=== PATIENT | male | born 1970 | race Hispanic/Latino ===

== ENCOUNTER 2022-04-27 05:34 | Day surgery (SDC) | payer BC ==
[2022-04-22 11:58] LABS: EOSINOPHILS % (AUTO) 1.4 % (0.0-8.0); HEMATOCRIT 44.4 % (42-54); LYMPHOCYTES % (AUTO) 40.9 % (21.0-51.0); MEAN CORPUSCULAR HEMOGLOBIN 28.5 pg (27.0-33.0); MEAN CORPUSCULAR HGB CONC 34.2 g/dL (32.0-36.0); MEAN CORPUSCULAR VOLUME 83.3 fL (79-99); MONOCYTES % (AUTO) 5.7 % (3.0-13.0); NEUTROPHILS % (AUTO) 50.8 % (40.0-77.0); PLATELET COUNT (AUTO) 248 K/uL (130-400); RED BLOOD CELL COUNT(AUTO) 5.33 MIL/uL (4.50-6.20); RED CELL DISTRIBUTION WIDTH 12.5 % (11.0-15.5)
[2022-04-22 12:07] LABS: APPEARANCE,URINE CLEAR (CLEAR); BILIRUBIN,URINE NEGATIVE (NEGATIVE); COLOR,URINE LIGHT-YELLOW (YELLOW); GLUCOSE, URINE (UA) >=1000 mg/dL (NEGATIVE); KETONES,URINE 10 mg/dL (NEGATIVE); LEUKOCYTE ESTERASE ,URINE NEGATIVE Leu/uL (NEGATIVE); NITRATE,URINE NEGATIVE (NEGATIVE); OCCULT BLOOD,URINE NEGATIVE (NEGATIVE); PH,URINE 7.5 (5.0-8.0); PROTEIN,URINE 10 mg/dL (NEGATIVE); UROBILINOGEN,URINE 0.2 mg/dL (0.2-1.0)
[2022-04-22 12:12] LABS: CREATININE 1.2 mg/dL (0.5-1.5); POTASSIUM 4.3 mmol/L (3.5-5.1); SQUAMOUS EPITHELIAL CELL,UR RARE /HPF (0-2)
[2022-04-22 12:13] LABS: INR 0.94 (0.85-1.15); PROTHROMBIN TIME 10.3 SEC (9.6-11.6)
[2022-04-22 12:26] LABS: B-TYPE NATRIURETIC PEPTIDE 10 pg/mL (0-100)
[2022-04-26 12:35] VITALS: BP_SYST 126
[~2022-04-27] VITALS: Ht 170.2 cm; Wt 106.8 kg
[2022-04-27] VITALS (16 sets, daily range): BP systolic 95–144; BP diastolic 60–85
[~2022-04-27 05:34] MED LIST: ASPI-1005 PO; GLYB-171 PO; ICOS1CAP PO; METO50CA PO; OLME40TA18 PO; ROSU40TA21 PO
[2022-04-27] MEDS ORDERED: 0.9%NACL 1000ML 1,000 ML IV ONE (06:21)
[2022-04-27] MEDS ORDERED: IOHEXOL 350 MG/ML 100ML INFUS..BTL IV ONE (07:23)
[2022-04-27] MEDS ORDERED: VERAPAMIL HCL 2.5 MG/ML VIAL ONE (07:23)
[2022-04-27] MEDS ORDERED: HEPARIN 10,000 UNIT/10ML (1,000 UNIT/ML) VIAL ONE (07:23)
[2022-04-27] MEDS ORDERED: MEPERIDINE-PF 25 MG/ML SYG ONE (07:23)
[2022-04-27] MEDS ORDERED: NITROGLYCERIN 50MG VIAL ONE (07:23)
[2022-04-27] MEDS ORDERED: LIDOCAINE HCL 400MG/20ML VIAL ONE (07:24)
[2022-04-27] MEDS ORDERED: MIDAZOLAM HCL 1 MG/ML 2ML VIAL ONE ×2 (07:24→07:56)
[2022-04-27] MEDS ORDERED: FENTANYL CITRATE PF 50 MCG/1 ML 2ML VIAL ONE (07:25)
[2022-04-27] MEDS ORDERED: DiphenhydrAMINE HCL 50 MG/ML VIAL ONE (07:44)
[2022-04-27] MEDS ORDERED: 0.9%NACL 1000ML 1,000 ML IV SCH (08:00)
[2022-04-27] MEDS ORDERED: IOHEXOL-350 50ML VIAL IV ONE (08:07)
[2022-04-27] MEDS ORDERED: DEXTROSE 50%-WATER 50 ML DISP.SYRIN IV PRN (08:30)
[2022-04-27] MEDS ORDERED: GLUCAGON 1MG KIT 1 MG ML IM PRN (08:30)
[2022-04-27] MEDS ORDERED: INSULIN HUMULIN R 100 UNIT/ML 3ML ONE (09:33)
== END 2022-04-27 12:10 | disposition home or self-care (01) ==
LOC: DAH 05:34
PROVIDERS: ATTEND Student in an Organized Health Care Education/Training Program
DX: I25.118 Atherosclerotic heart disease of native coronary artery with other forms of angina pectoris (principal); I10 Essential (primary) hypertension; E11.9 Type 2 diabetes mellitus without complications; E78.2 Mixed hyperlipidemia; Z79.82 Long term (current) use of aspirin; Z79.01 Long term (current) use of anticoagulants; Z79.899 Other long term (current) drug therapy
CPT/HCPCS: 80048; 83880; 85025; 85610; 85730; 81001; 36415; 71045; 93005; 93458; 82948 ×2; J1815; C1769; C1894; Q9965; J1200; J3010; J3490 ×3; J7030; J1644 ×2; J2250 ×2; Q9967; A4215; A4222; A6260; A4221; A4663; A4216; A6206; A4606; A4223 ×3; 99156; 99157; J2175

== ENCOUNTER 2024-11-19 14:04 | Emergency (ER) | payer BC ==
[~2024-11-19] VITALS: Ht 170.2 cm; Wt 102.1 kg
[~2024-11-19 14:04] MED LIST changes: -ROSU40TA21 PO; +ROSU40TA88 PO
[2024-11-19 14:05] VITALS: BP 132/74; PULSE 91; RESP 19; TEMP 98.6
[2024-11-19 14:31] LABS: IMMATURE GRANULOCYTE ABSOLUTE 0.02 K/uL (0-1); NUCLEATED RED BLOOD CELLS 0.0 % (0.0-0.19); PLATELET COUNT (AUTO) 219 K/uL (130-400); RED BLOOD CELL COUNT(AUTO) 5.08 MIL/uL (4.50-6.20); RED CELL DISTRIBUTION WIDTH 12.7 % (11.0-15.5); WHITE BLOOD COUNT (AUTO) 8.4 K/uL (4.8-10.8)
--- NOTE | 2024-11-19 14:34 | EKG ---
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
[2024-11-19 14:40] LABS: CREATININE 1.0 mg/dL (0.5-1.3); GLOMERULAR FILTR. RATE CALC 91.0 mL/min (>90); GLUCOSE,RANDOM 175.0 mg/dL (70-105); SODIUM SERUM 138.0 mmol/L (136-145); UREA NITROGEN, BLOOD 12.0 mg/dL (7-18)
[2024-11-19 14:45] LABS: ASPARTATE AMINOTRANSFERASE 15.0 U/L (10-37); TOTAL PROTEIN, SERUM 7.1 g/dL (6.0-8.3)
--- NOTE | 2024-11-19 15:45 | NUR ---
PATIENT VOICED DESIRE TO LEAVE AT THIS TIME DUE TO SYMPTOMS RESOLVING, PATIENT INFORMED THAT LEAVING IS CONSIDERED LEAVING AGAINST MEDICAL ADVICE OF THE PHYSICIAN, AND THE RISK INVOLVED INCLUDE WORSENING OF CONDITION OR . PATIENT VOICED UNDERSTANDING AT THIS TIME AND REINFORCED EDUCATION TO RETURN TO ED IF SYMPTOMS WORSEN. PATIENT SIGNED AMA FORM AT THIS TIME AND AMBULATED OUT OF THE ED./DAKOTA
--- NOTE | 2024-12-26 15:23 | ERN ---
ED Note History of Present Illness Stated Complaint: CHEST PAIN Chief Complaint: Chest Pain Time Seen by MD: 14:08 Dictation: Patient was seen November 19, 2024 54-year-old male with chest pain on and off for the past few days patient reported sharp discomfort. No shortness a breath Allergies: Coded Allergies: No Known Allergies (Verified Allergy, Unknown, 04/22/22) Home Meds Reported Medications Glyburide/Metformin HCl (Glyburide-Metformin 2.5-500 mg) 1 Each Tablet, 4 EACH PO AM, TAB 04/26/22 Aspirin (ASPIRIN 81MG CHEW TAB) 81 Mg Tab.chew, 81 MG PO AM, TAB.CHEW 04/26/22 Rosuvastatin Calcium (Rosuvastatin Calcium) 40 Mg Tablet, 40 MG PO AM, TAB 04/26/22 Olmesartan Medoxomil (Olmesartan Medoxomil) 40 Mg Tablet, 40 MG PO AM, TAB 04/26/22 Icosapent Ethyl (Vascepa) 1 Gm Capsule, 4 GM PO AM, CAP 04/26/22 Metoprolol Succinate (Kapspargo Sprinkle) 50 Mg Cap.spr.24, 50 MG PO AM, CAP 04/26/22 Past Medical History Past Medical History: CAD, Diabetes-Type II, High Cholesterol, Hypertension Surgical History: Tonsillectomy Review of System Dictation Constitutional: Negative for fever,chills, and weight loss Eyes: Negative for injury, pain,redness, and discharge ENT: Negative for injury,pain or swelling Cardiovascular: Per HPI Respiratory: Negative for shortness of breath, cough, and wheezing, Abdomen/GI: Negative for abdominal pain, nausea, vomiting, diarrhea, and constipation Back: Negative for injury and pain : Negative for injury, bleeding and discharge MS/Extremity: Negative for injury and deformity Skin: Negative for rash, and discoloration Neuro: Negative for headache, weakness, numbness, tingling, and seizure Psych: Negative for suicide ideation, homicidal ideation, and hallucinations Initial Vital Sign VS Vital Signs Date Time Temp Pulse Resp B/P (MAP) Pulse Ox O2 Delivery O2 Flow Rate FiO2 11/19/24 14:05 98.6 91 19 132/74 98 Room Air 0 Physical Exam Dictation General: awake, alert, NAD Head/Face: Normocephalic, atraumatic Eyes: PERRL, EOMI, vision at baseline ENT: oral cavity clear, TMs clear, no signs of infection Neck: Trachea midline, supple, no nuchal rigidity Cardiovascular: RRR, normal S1/S2, No MRGs, no JVD Respiratory: CTAB, no respiratory distress, No rales or wheezes Abdomen: Soft, non-tender, non-distended, normal bowel sounds, no guarding or rebound. Skin: Warm, dry, normal turgor, no rash MS/Extremity: Pulses equal, no cyanosis, neurovascular intact, FROM Neuro: COAx4, GCS 15, strength 5/5, CN 2-12 intact, normal cerebellar exam, normal gait, Psych: Normal behavior, mood, and affect normal Results (Laboratory/Radiology) Labs Reviewed?: Yes ED Course ED Course 54-year-old male with chest pain initial workup sent out however patient left ag ainst medical advice, unable to give disposition. Medical Decision Making MDM patient left AMA DX & DISP Disposition: AMA Departure Impression: Primary Impression: Chest pain Condition: Stable Referrals: SELF,REFERRAL (PCP) NERI PALACIO MD Dec 26, 2024 15:23
== END 2024-11-19 15:49 | disposition left against medical advice (07) ==
LOC: EDH 14:04
DX: R07.9 Chest pain, unspecified (principal); E11.9 Type 2 diabetes mellitus without complications; E78.00 Pure hypercholesterolemia, unspecified; I10 Essential (primary) hypertension; I25.10 Atherosclerotic heart disease of native coronary artery without angina pectoris; Z79.84 Long term (current) use of oral hypoglycemic drugs; Z79.82 Long term (current) use of aspirin; Z90.89 Acquired absence of other organs; Z53.29 Procedure and treatment not carried out because of patient's decision for other reasons
CPT/HCPCS: 36415; 80048; 80076; 83880; 84484; 85025; 93005; 99284